=== PATIENT | female | born 1985 | race Two or more races ===

== ENCOUNTER 2018-12-16 09:05 | Emergency (ER) | payer BC ==
[~2018-12-16] VITALS: Ht 160 cm; Wt 117.9 kg
[2018-12-16 09:14] VITALS: BP_SYST 134
[2018-12-16 09:48] LABS: BASOPHILS # (AUTO) 0.1 K/uL (0.0-0.2); BASOPHILS % (AUTO) 1.2 % (0.0-2.0); EOSINOPHILS # (AUTO) 0.3 K/uL (0.0-0.4); EOSINOPHILS % (AUTO) 2.7 % (0.0-4.0); HEMATOCRIT 32.4 % (36-48); HEMOGLOBIN 10.1 g/dL (12.0-16.0); LYMPHOCYTES # (AUTO) 2.5 K/uL (1.0-5.5); LYMPHOCYTES % (AUTO) 27.4 % (20.5-51.5); MEAN CORPUSCULAR HEMOGLOBIN 23 pg (27-31); MEAN CORPUSCULAR HGB CONC 31 % (32-36); MEAN CORPUSCULAR VOLUME 73 fL (79.0-98.0); MONOCYTES # (AUTO) 0.8 K/uL (0.0-1.0); MONOCYTES % (AUTO) 8.2 % (1.7-9.3); NEUTROPHILS # (AUTO) 5.6 K/uL (1.8-7.7); NEUTROPHILS % (AUTO) 60.5 % (40.0-70.0); PLATELET COUNT (AUTO) 307 K/uL (130-430); RED BLOOD CELL COUNT(AUTO) 4.43 MIL/uL (4.2-6.2); RED CELL DISTRIBUTION WIDTH 23.4 % (9.0-15.0); WHITE BLOOD COUNT (AUTO) 9.3 K/uL (4.8-10.8)
[2018-12-16 10:01] LABS: CALCIUM 8.8 mg/dL (8.4-11.0); CREATININE 0.65 mg/dL (0.55-1.30); POTASSIUM 4.1 mmol/L (3.5-5.1)
[2018-12-16 10:04] LABS: PROTHROMBIN TIME 10.4 SECS (9.5-12.5)
[2018-12-16 10:05] LABS: TOTAL BILIRUBIN 0.3 mg/dL (0.0-1.0)
[2018-12-16 10:06] LABS: ALBUMIN 3.3 g/dL (3.4-4.8)
[2018-12-16] MEDS ORDERED: NACL 0.9% 1,000 ML IV ONE (10:45)
[2018-12-16 14:30] VITALS: BP_SYST 132
== END 2018-12-16 14:30 | disposition home or self-care (01) ==
LOC: SED 09:05
DX: N93.9 Abnormal uterine and vaginal bleeding, unspecified (principal); M54.5 Low back pain; R11.0 Nausea; R03.0 Elevated blood-pressure reading, without diagnosis of hypertension; Z88.2 Allergy status to sulfonamides
CPT/HCPCS: 36415; 76830; 76857; 80053; 84703; 85025; 85610; 85730; 86886; 86900; 86901; 99284; J7030